=== PATIENT | male | born 1990 | race Hispanic/Latino ===

== ENCOUNTER 2017-02-19 08:29 | Observation (INO) | payer BC ==
[2017-02-19 08:40] VITALS: BMI 33.4
[2017-02-19] MEDS ORDERED: Sodium Chloride 0.9% 1,000 ML IV STA (09:26)
[2017-02-19] MEDS ORDERED: Dexamethasone 10 MG in Sodium Chloride 0.9% 50 ML IVP ONE (09:26)
--- NOTE | 2017-02-19 09:27 | ED PDOC ---
HPI: CCC, URI, Sore Throat Time Seen by Provider: 02/19/17 09:11 Chief Complaint (Nursing): ENT Problem Chief Complaint (Provider): Throat Pain History Per: Patient History/Exam Limitations: no limitations Onset/Duration Of Symptoms: Days (4-5days ago) Current Symptoms Are (Timing): Still Present Associated Symptoms: Fever Additional Complaint(s): 26 y/o male presents to the ED complaining of throat pain, onset of 4-5 days ago. Patient reports of being diagnosed with the flu after seeing his primary care provider 4 days ago. He states that his strep test came back negative and was sent home with prescriptions for Tamiflu, Augmentin, and Clarinex. However, his symptoms of fever, chills, coughing, throat pain, and difficulty swallowing continued. Patient denies vomiting, abdominal pain or any other medical problems. PCP: Joshua Lieberman Past Medical History Reviewed: Historical Data, Nursing Documentation, Vital Signs Vital Signs: Last Vital Signs Temp 98.1 F 02/19/17 08:41 Pulse 70 02/19/17 08:41 Resp 20 02/19/17 08:41 BP 132/69 02/19/17 08:41 Pulse Ox 99 02/19/17 12:05 - Medical History PMH: No Chronic Diseases Denies: HIV, Chronic Kidney Disease - Surgical History Other surgeries: Leg Surgery 3yrs ago for staff infection - Family History Family History: States: Unknown Family Hx - Living Arrangements Living Arrangements: With Family - Social History Current smoker - smoking cessation education provided: No Ex-Smoker (has not smoked in the last 12 months): Yes (1 week ago) Alcohol: Occasional - Immunization History Hx Tetanus Toxoid Vaccination: No Hx Influenza Vaccination: No Hx Pneumococcal Vaccination: No - Home Medications Home Medications: Ambulatory Orders Medication Instructions Recorded Acetaminophen/Oxycodone Hydr 1 tab PO Q6H #15 tab 01/06/14 [Percocet 10/325 mg Tab] Ibuprofen [Motrin Tab] 800 mg PO BID PRN #30 tab 01/06/14 Clindamycin Hydrochloride 150 mg PO TID 01/14/14 [Clindamycin HCl] Sulfamethoxazole/Trimethopri 1 mg PO BID 01/14/14 [Bactrim Ds 800 mg-160 mg] - Allergies Allergies/Adverse Reactions: Allergies Allergy/AdvReac Type Severity Reaction Status Date / Time shellfish derived Allergy URTICARIA Verified 02/19/17 08:56 Review of Systems ROS Statement: Except As Marked, All Systems Reviewed And Found Negative Constitutional: Positive for: Fever, Chills ENT: Positive for: Throat Pain (difficulty swallowing) Respiratory: Positive for: Cough Gastrointestinal: Negative for: Vomiting, Abdominal Pain Physical Exam - Reviewed Nursing Documentation Reviewed: Yes Vital Signs Reviewed: Yes - Physical Exam Appears: Positive for: Non-toxic, No Acute Distress Head Exam: Positive for: ATRAUMATIC, NORMOCEPHALIC Skin: Positive for: Normal Color, Warm Eye Exam: Positive for: Normal appearance, EOMI, PERRL ENT: Positive for: Pharyngeal Erythema, Tonsillar Exudate (left tonsil has white tonsillar exudates), Tonsillar Swelling (asymmetric swelling(left larger than right) ), Other (not drooling) Neck: Positive for: Normal, Painless ROM, Supple Cardiovascular/Chest: Positive for: Regular Rate, Rhythm. Negative for: Murmur Respiratory: Positive for: Normal Breath Sounds. Negative for: Respiratory Distress Gastrointestinal/Abdominal: Positive for: Normal Exam, Soft. Negative for: Tenderness Back: Positive for: Normal Inspection Extremity: Positive for: Normal ROM. Negative for: Pedal Edema, Deformity Lymphatic: Positive for: Adenopathy (Cervical lymphadenopathy on left side) Neurologic/Psych: Positive for: Alert, Oriented. Negative for: Motor/Sensory Deficits - Laboratory Results Result Diagrams: 02/19/17 09:40 02/19/17 09:40 - ECG O2 Sat by Pulse Oximetry: 99 (RA) Pulse Ox Interpretation: Normal Medical Decision Making Medical Decision Making: Time: --09:25 Impression: --Tonsillitis Differential: --peritonsillar abscess Plan: --CT Neck Sofft Tissue W/ Contrast --Labs --PTT --Prothrombin Time --Dexamethasone 10mg IV --IV fluids --Blood Culture Reassess [id number] TECHNIQUE: CT of the neck with intravenous contrast. Coronal and sagittal reformats generated. Intravenous contrast dose: 98 cc Omnipaque Radiation dose: DLP 573 mGy-cm This CT exam was performed using one or more of the following dose reduction techniques: Automated exposure control, adjustment of the mA and/or kV according to patient size, and/or use of iterative reconstruction technique. FINDINGS: NASOPHARYNX: Unremarkable. SUPRAHYOID NECK: There is evidence of nonspecific mild asymmetric soft tissue prominence in the left oral cavity and peritonsillar region, without definite focal low density or peripherally enhancing collection to suggest abscess. Phlegmon is appreciated with some mild effacement of the left oral pharynx and extending inferiorly into the left supraglottic region with some mild effacement of the left aryepiglottic region and superior piriform sinus. There is a mildly to moderately enlarged left anterior level 2 lymph node with a slightly smaller counterpart seen on the right. Other scattered numerous lymph nodes are seen elsewhere in the neck, more than likely reactive. No focal low density is seen in the larger lymph nodes to suggest necrosis. Tongue base region is within normal limits. INFRAHYOID NECK: See above. Visualized focal cord regions and subglottic area are unremarkable. No bone destruction is seen. MASS: None. GLANDS: Parotid and submandibular glands unremarkable. Normal size thyroid gland, without nodule. LYMPH NODES: Scattered neck lymph nodes are appreciated as described above. CERVICAL SPINE: Minimal degenerative changes are noted in the cervical spine region. No bone destruction is seen. No prevertebral soft tissue swelling is clearly noted. VASCULAR STRUCTURES: Unremarkable. OTHER FINDINGS: Visualized sinuses are clear. Mastoid air cells and middle ear cavity regions are unremarkable. Visualized portions of the brain are unremarkable. Retro- orbital regions are within normal limits. Visualized lungs are unremarkable. IMPRESSION: [id number] soft tissue thickening and phlegmon within the left oral cavity and peritonsillar region suggesting pharyngitis. No definite focal fluid collection is clearly seen to suggest abscess. Please see above for details. Moderate neck lymphadenopathy, more than likely reactive. --12:[address] Mccurdy to discuss the results of CT showing peritonsillar abscess. Recommends admitting the patient and antibiotics(azithromycin) and will also be doing IND and consultation. --12:16 Provider spoke to patients primary care, Dr. Lieberman, who will admit the patient. Diagnosis: Peritonsillar Abscess Scribe Attestation: Documented by Rickie Colmenares acting as a scribe for Dominik Ortega MD. Disposition - Clinical Impression Clinical Impression: Tonsillitis, Peritonsillar abscess - Patient ED Disposition Is Patient to be Admitted: Yes Discussed With : Joshua Lieberman Counseled Patient/Family Regarding: Studies Performed, Diagnosis - Disposition Referrals: Agustin Mccurdy MD [Staff Provider] - Disposition Time: 12:02 Condition: GOOD Instructions: Tonsillitis (ED)
[2017-02-19 10:01] LABS: PARTIAL THROMBOPLASTIN TIME 34.8 Seconds (25.6-37.1); PROTHROMBIN TIME 10.9 Seconds (9.8-13.1)
[2017-02-19 10:03] LABS: BASO # 0.1 K/uL (0.0-0.2); BASO % 0.7 % (0.0-2.0); EOS # 0.1 K/uL (0.0-0.7); HEMOGLOBIN 15.2 g/dL (12.0-18.0); LYMPH # 2.4 K/uL (1.0-4.3); LYMPH % 21.8 % (20.0-40.0); MEAN CELL VOLUME 87.7 fl (80.0-94.0); MEAN CORPUSCULAR HEMOGLOBIN 29.6 pg (27.0-31.0); MEAN CORPUSCULAR HGB CONC 33.7 g/dL (33.0-37.0); MEAN PLATELET VOLUME 7.9 fl (7.2-11.7); MONO # 1.4 K/uL (0.0-0.8); MONO % 12.6 % (0.0-10.0); NEUT % 63.9 % (50.0-75.0); NRBC % 0.1 % (0.0-0.0); RBC 5.16 Mil/uL (4.40-5.90); RED CELL DISTRIBUTION WIDTH 13.2 % (11.5-14.5); WHITE BLOOD COUNT 10.9 K/uL (4.8-10.8)
[2017-02-19 10:07] LABS: BLOOD UREA NITROGEN 12 mg/dl (9-20); CALCIUM 9.7 mg/dL (8.4-10.2); GFR AFRICAN-AMERICAN > 60; GFR NON-AFRICAN AMERICAN > 60
--- NOTE | 2017-02-19 11:45 | CT ---
PROCEDURE: CT NECK WITH CONTRAST HISTORY: sore throat left tonsillar swelling COMPARISON: None TECHNIQUE: CT of the neck with intravenous contrast. Coronal and sagittal reformats generated. Intravenous contrast dose: 98 cc Omnipaque Radiation dose: DLP 573 mGy-cm This CT exam was performed using one or more of the following dose reduction techniques: Automated exposure control, adjustment of the mA and/or kV according to patient size, and/or use of iterative reconstruction technique. FINDINGS: NASOPHARYNX: Unremarkable. SUPRAHYOID NECK: There is evidence of nonspecific mild asymmetric soft tissue prominence in the left oral cavity and peritonsillar region, without definite focal low density or peripherally enhancing collection to suggest abscess. Phlegmon is appreciated with some mild effacement of the left oral pharynx and extending inferiorly into the left supraglottic region with some mild effacement of the left aryepiglottic region and superior piriform sinus. There is a mildly to moderately enlarged left anterior level 2 lymph node with a slightly smaller counterpart seen on the right. Other scattered numerous lymph nodes are seen elsewhere in the neck, more than likely reactive. No focal low density is seen in the larger lymph nodes to suggest necrosis. Tongue base region is within normal limits. INFRAHYOID NECK: See above. Visualized focal cord regions and subglottic area are unremarkable. No bone destruction is seen. MASS: None. GLANDS: Parotid and submandibular glands unremarkable. Normal size thyroid gland, without nodule. LYMPH NODES: Scattered neck lymph nodes are appreciated as described above. CERVICAL SPINE: Minimal degenerative changes are noted in the cervical spine region. No bone destruction is seen. No prevertebral soft tissue swelling is clearly noted. VASCULAR STRUCTURES: Unremarkable. OTHER FINDINGS: Visualized sinuses are clear. Mastoid air cells and middle ear cavity regions are unremarkable. Visualized portions of the brain are unremarkable. Retro-orbital regions are within normal limits. Visualized lungs are unremarkable. IMPRESSION: [id number] soft tissue thickening and phlegmon within the left oral cavity and peritonsillar region suggesting pharyngitis. No definite focal fluid collection is clearly seen to suggest abscess. Please see above for details. Moderate neck lymphadenopathy, more than likely reactive.
[2017-02-19] MEDS: Clindamycin 600mg/50ml NS 600 MG/50 ML BAG IVPB SCH (12:48)
[2017-02-19] MEDS ORDERED: Lidocaine 2% w Epi 1:100,000 Inj IJ ONE (14:05)
--- NOTE | 2017-02-19 15:41 | CP.PCM.HP ---
History of Present Illness - History of Present Illness History of Present Illness: 26 y/o male presents to the ED complaining of throat pain, onset of 1week ago. He was started on Augmentin for sinus and URI and pharyngitis. He presented with influenza symptoms and was started on Tamiflu. A strep test came back negative and a CXR was negative. However, his symptoms of fever, chills, coughing, throat pain, and difficulty swallowing continued. His odynophagia was worse and he presented in ER for further evaluation of his condition. A neck CT reveled a phlegmon. Patient failed out patient rx. Will follow with ENT Present on Admission - Present on Admission Any Indicators Present on Admission: No Review of Systems - Constitutional Constitutional: As Per HPI - EENT Eyes: As Per HPI Nose/Mouth/Throat: Odynophagia, Sore Throat - Cardiovascular Cardiovascular: As Per HPI - Respiratory Respiratory: As Per HPI - Gastrointestinal Gastrointestinal: As Per HPI, Odynophagia - Musculoskeletal Musculoskeletal: As Per HPI - Integumentary Integumentary: As Per HPI - Neurological Neurological: As Per HPI - Psychiatric Psychiatric: As Per HPI Past Patient History - Infectious Disease Hx of Infectious Diseases: None - Past Medical History & Family History Past Medical History?: No - Past Social History Alcohol: Occasional - CARDIAC Hx Cardiac Disorders: No - PULMONARY Hx Respiratory Disorders: No - NEUROLOGICAL Hx Neurological Disorder: No - HEENT Hx HEENT Problems: No - RENAL Hx Chronic Kidney Disease: No - ENDOCRINE/METABOLIC Hx Endocrine Disorders: No - HEMATOLOGICAL/ONCOLOGICAL Hx Human Immunodeficiency Virus (HIV): No - INTEGUMENTARY Hx Dermatological Problems: No - MUSCULOSKELETAL/RHEUMATOLOGICAL Hx Musculoskeletal Disorders: No Hx Falls: No - GASTROINTESTINAL Hx Gastrointestinal Disorders: No - GENITOURINARY/GYNECOLOGICAL Hx Genitourinary Disorders: No - PSYCHIATRIC Hx Psychophysiologic Disorder: No Hx Substance Use: No - SURGICAL HISTORY Other/Comment: Rhino surgery. 2007 - ANESTHESIA Hx Anesthesia: Yes Hx Anesthesia Reactions: No Hx Malignant Hyperthermia: No Meds Allergies/Adverse Reactions: Allergies Allergy/AdvReac Type Severity Reaction Status Date / Time shellfish derived Allergy URTICARIA Verified 02/19/17 08:56 Physical Exam - Constitutional Appears: Non-toxic - Head Exam Head Exam: ATRAUMATIC, NORMAL INSPECTION, NORMOCEPHALIC - Eye Exam Eye Exam: Normal appearance Pupil Exam: PERRL - ENT Exam ENT Exam: Mucous Membranes Dry Additional comments: + exudates in the lt pharyngeal area, with tenderness. - Cardiovascular Exam Cardiovascular Exam: REGULAR RHYTHM, +S1, +S2 - GI/Abdominal Exam GI & Abdominal Exam: Normal Bowel Sounds Additional comments: no oraganomegaly - Extremities Exam Extremities exam: Positive for: normal inspection - Neurological Exam Neurological exam: Alert, CN II-XII Intact, Oriented x3, Reflexes Normal - Psychiatric Exam Psychiatric exam: Normal Affect - Skin Skin Exam: Normal Color Results - Vital Signs Recent Vital Signs: Last Vital Signs Temp 97.9 F 02/19/17 12:55 Pulse 68 02/19/17 12:55 Resp 16 02/19/17 12:55 BP 113/71 02/19/17 12:55 Pulse Ox 99 02/19/17 12:42 - Labs Result Diagrams: 02/19/17 09:40 02/19/17 09:40 Labs: Laboratory Results - last 24 hr 02/19/17 02/19/17 02/19/17 09:40 09:40 09:40 WBC 10.9 H RBC 5.16 Hgb 15.2 Hct 45.2 MCV 87.7 MCH 29.6 MCHC 33.7 RDW 13.2 Plt Count 344 MPV 7.9 Neut % (Auto) 63.9 Lymph % (Auto) 21.8 [place] % (Auto) 12.6 H Eos % (Auto) 1.0 Baso % (Auto) 0.7 Neut # 7.0 Lymph # 2.4 [place] # 1.4 H Eos # 0.1 Baso # 0.1 PT 10.9 INR 1.0 APTT 34.8 Sodium 146 Potassium 4.3 Chloride 104 Carbon Dioxide 31 H Anion Gap 15 BUN 12 Creatinine 0.7 L Est GFR ( Amer) > 60 Est GFR (Non-Af Amer) > 60 Random Glucose 107 Calcium 9.7 Infectious [place] Assay 02/19/17 11:17 WBC RBC Hgb Hct MCV MCH MCHC RDW Plt Count MPV Neut % (Auto) Lymph % (Auto) [place] % (Auto) Eos % (Auto) Baso % (Auto) Neut # Lymph # [place] # Eos # Baso # PT INR APTT Sodium Potassium Chloride Carbon Dioxide Anion Gap BUN Creatinine Est GFR ( Amer) Est GFR (Non-Af Amer) Random Glucose Calcium Infectious [place] Assay Negative Assessment & Plan (1) Phlegmon Status: Acute (2) Peritonsillar abscess Status: Acute (3) Odynophagia Status: Acute - Assessment and Plan (Free Text) Plan: As per orders.
[2017-02-19] MEDS: Dextrose 5%/0.9% NS 1,000 ML IV SCH ×2 (17:10→21:54)
[2017-02-20] MEDS: Dextrose 5%/0.9% NS 1,000 ML IV SCH ×3 (02:00→11:09)
[2017-02-20] MEDS ORDERED: Acetaminophen/Codeine elixir 120-12mg/5ml PO PRN (09:14)
--- NOTE | 2017-02-20 09:56 | OP ---
PROCEDURE DATE: 02/20/2017 PREOPERATIVE DIAGNOSIS: Left peritonsillar abscess. POSTOPERATIVE DIAGNOSIS: Left peritonsillar abscess. PROCEDURE: Incision and drainage of left peritonsillar abscess. SIGNIFICANT FINDINGS: Left peritonsillar abscess. DESCRIPTION OF PROCEDURE: The patient was placed in a seated position. The left peritonsillar area was injected with lidocaine with epinephrine. A #11 blade was used to make an incision in the left peritonsillar area. Blunt dissection was done using a clamp. Pus was noted coming out. Loculations were broken with the clamp. Bleeding was controlled with time. The patient tolerated the procedure well. Agustin Mccurdy MD
[2017-02-20] MEDS ORDERED: Clindamycin 600mg/50ml NS 600 MG/50 ML BAG IVPB SCH (10:45)
[2017-02-20] MEDS: Clindamycin 600mg/50ml NS 600 MG/50 ML BAG IVPB SCH ×3 (11:37→16:05)
[2017-02-20 15:20] VITALS: RESP 18
--- NOTE | 2017-02-20 18:40 | CP.PCM.PN ---
Subjective - Date & Time of Evaluation Date of Evaluation: 02/20/17 Time of Evaluation: 18:40 - Subjective Subjective: Still severe odynophagia Objective - Vital Signs/Intake and Output Vital Signs (last 24 hours): Temp Pulse Resp BP Pulse Ox 97.4 F L 61 18 115/71 98 02/20/17 15:20 02/20/17 15:20 02/20/17 15:20 02/20/17 15:20 02/20/17 15:20 - Medications Medications: Current Medications Acetaminophen/Codeine Phosphate (Tylenol/Codeine Elixir) 5 ml PO Q6 PRN PRN Reason: Pain, moderate (4-7) Stop: 02/27/17 09:15 Last Admin: 02/20/17 09:22 Dose: 5 ml Clindamycin Phosphate (Cleocin In Normal Saline) 600 mg in 50 mls @ 48.077 mls/ hr IVPB STAT AMIE PRN Reason: Protocol Last Admin: 02/19/17 12:48 Dose: 48.077 mls/hr Clindamycin Phosphate (Cleocin In Normal Saline) 600 mg in 50 mls @ 50 mls/hr IVPB Q8 AMIE PRN Reason: Protocol Last Admin: 02/20/17 16:05 Dose: 50 mls/hr - Labs Labs: 02/19/17 09:40 02/19/17 09:40 PT 10.9 Seconds (9.8-13.1) 02/19/17 09:40 INR 1.0 (0.9-1.2) 02/19/17 09:40 APTT 34.8 Seconds (25.6-37.1) 02/19/17 09:40 - Head Exam Head Exam: ATRAUMATIC, NORMAL INSPECTION, NORMOCEPHALIC - Eye Exam Eye Exam: Normal appearance - ENT Exam Additional comments: + exudates in pharynx + tenderness - Respiratory Exam Respiratory Exam: Clear to Ausculation Bilateral - Cardiovascular Exam Cardiovascular Exam: REGULAR RHYTHM, +S1, +S2 - GI/Abdominal Exam GI & Abdominal Exam: Soft, Normal Bowel Sounds - Neurological Exam Neurological Exam: Alert, Awake, CN II-XII Intact, Oriented x3 - Psychiatric Exam Psychiatric exam: Normal Mood Assessment and Plan (1) Phlegmon Status: Acute (2) Peritonsillar abscess Status: Acute (3) Odynophagia Status: Acute - Assessment and Plan (Free Text) Plan: Continue present rx
[2017-02-21] MEDS: Clindamycin 600mg/50ml NS 600 MG/50 ML BAG IVPB SCH ×2 (00:07→08:42)
[2017-02-21 08:11] VITALS: BP 105/63; PULSE 52; TEMP 97.4; O2SAT 96
--- NOTE | 2017-02-21 14:05 | CP.PCM.DIS ---
Provider - Provider Date of Admission: 02/19/17 12:09 Attending physician: Joshua Lieberman MD Time Spent in preparation of Discharge (in minutes): 30 Diagnosis - Discharge Diagnosis (1) Phlegmon Status: Acute (2) Peritonsillar abscess Status: Acute (3) Odynophagia Status: Acute Hospital Course - Lab Results Lab Results: Micro Results 02/19/17 09:40 Blood Blood Culture - Preliminary NO GROWTH AFTER 48 HOURS 02/19/17 11:20 Throat Group A Strep Throat Culture - Final NO BETA STREP GROUP A ISOLATED. Most Recent Lab Values WBC 10.9 K/uL (4.8-10.8) H 02/19/17 09:40 RBC 5.16 Mil/uL (4.40-5.90) 02/19/17 09:40 Hgb 15.2 g/dL (12.0-18.0) 02/19/17 09:40 Hct 45.2 % (35.0-51.0) 02/19/17 09:40 MCV 87.7 fl (80.0-94.0) 02/19/17 09:40 MCH 29.6 pg (27.0-31.0) 02/19/17 09:40 MCHC 33.7 g/dL (33.0-37.0) 02/19/17 09:40 RDW 13.2 % (11.5-14.5) 02/19/17 09:40 Plt Count 344 K/uL (130-400) 02/19/17 09:40 MPV 7.9 fl (7.2-11.7) 02/19/17 09:40 Neut % (Auto) 63.9 % (50.0-75.0) 02/19/17 09:40 Lymph % (Auto) 21.8 % (20.0-40.0) 02/19/17 09:40 [place] % (Auto) 12.6 % (0.0-10.0) H 02/19/17 09:40 Eos % (Auto) 1.0 % (0.0-4.0) 02/19/17 09:40 Baso % (Auto) 0.7 % (0.0-2.0) 02/19/17 09:40 Neut # 7.0 K/uL (1.8-7.0) 02/19/17 09:40 Lymph # 2.4 K/uL (1.0-4.3) 02/19/17 09:40 [place] # 1.4 K/uL (0.0-0.8) H 02/19/17 09:40 Eos # 0.1 K/uL (0.0-0.7) 02/19/17 09:40 Baso # 0.1 K/uL (0.0-0.2) 02/19/17 09:40 PT 10.9 Seconds (9.8-13.1) 02/19/17 09:40 INR 1.0 (0.9-1.2) 02/19/17 09:40 APTT 34.8 Seconds (25.6-37.1) 02/19/17 09:40 Sodium 146 mmol/l (132-148) 02/19/17 09:40 Potassium 4.3 MMOL/L (3.6-5.0) 02/19/17 09:40 Chloride 104 mmol/L (98-107) 02/19/17 09:40 Carbon Dioxide 31 mmol/L (22-30) H 02/19/17 09:40 Anion Gap 15 (10-20) 02/19/17 09:40 BUN 12 mg/dl (9-20) 02/19/17 09:40 Creatinine 0.7 mg/dl (0.8-1.5) L 02/19/17 09:40 Est GFR ( Amer) > 60 02/19/17 09:40 Est GFR (Non-Af Amer) > 60 02/19/17 09:40 Random Glucose 107 mg/dL (75-110) 02/19/17 09:40 Calcium 9.7 mg/dL (8.4-10.2) 02/19/17 09:40 Infectious [place] Assay Negative (NEGATIVE) 02/19/17 11:17 - Hospital Course Hospital Course: 26 y/o male presents to the ED complaining of throat pain, onset of 1week ago. He was started on Augmentin for sinus and URI and pharyngitis. He presented with influenza symptoms and was started on Tamiflu. A strep test came back negative and a CXR was negative. However, his symptoms of fever, chills, coughing, throat pain, and difficulty swallowing continued. His odynophagia was worse and he presented in ER for further evaluation of his condition. A neck CT reveled a phlegmon an abscess. Patient underwent to I and D of the abscess and at present able of regular oral intake will dc home on clinda PO. Discharge Exam - Head Exam Head Exam: ATRAUMATIC, NORMAL INSPECTION, NORMOCEPHALIC - Eye Exam Eye Exam: Normal appearance - ENT Exam ENT Exam: Mucous Membranes Dry - Neck Exam Neck exam: Full Rom - Respiratory Exam Respiratory Exam: Clear to PA & Lateral - Cardiovascular Exam Cardiovascular Exam: REGULAR RHYTHM, +S1, +S2 - GI/Abdominal Exam GI & Abdominal Exam: Normal Bowel Sounds - Extremities Exam Extremities exam: normal inspection - Neurological Exam Neurological exam: Alert, CN II-XII Intact, Normal Gait, Oriented x3, Reflexes Normal - Psychiatric Exam Psychiatric exam: Normal Affect - Skin Skin Exam: Normal Color Discharge Plan - Follow Up Plan Condition: GOOD Disposition: HOME/ ROUTINE Instructions: Abscess (GEN) Referrals: Agustin Mccurdy MD [Staff Provider] - Joshua Lieberman MD [Family Provider] -
== END 2017-02-21 16:15 | disposition home or self-care (01) ==
LOC: H.ER 08:29 → H.ERHOLD 12:09 → H.MEDSURG1 13:07
PROVIDERS: ADMIT Internal Medicine; ATTEND Internal Medicine
DX: J36 Peritonsillar abscess (principal)
CPT/HCPCS: 42700; 70491; 80048; 85025; 85610; 85730; 86308; 87040; 87070; 99284; G0378; J1100; J7040; J7042